=== PATIENT | male | born 1945 | race Caucasian/White ===

== ENCOUNTER → 2017-09-15 | Outpatient (REF) ==
[~2017-09-15] MED LIST: ADVIL200 MG PO; DAZIDOX10 MG PO; PERCOCET 325 MG1 TA2 PO
[2017-09-15 18:45] LABS: PSA-TOTAL 5.32 ng/mL (0-4)
[2017-09-15 19:24] LABS: THYROID STIMULATING HORMONE 0.936 uIU/mL (0.465-4.680)
== END ==
LOC: ZLAB.WCH 17:57
PROVIDERS: Family Medicine
DX: Z01.89 Encounter for other specified special examinations (principal)
CPT/HCPCS: G0103

== ENCOUNTER 2017-10-23 11:10 | Emergency (ER) | payer BC, MEDICARE ==
[~2017-10-23] VITALS: Ht 165.1 cm; Wt 88.6 kg
[2017-10-23] MEDS ORDERED: FLONASEALLERGY NAS (11:16)
[2017-10-23 11:42] LABS: ALANINE AMINOTRANSFERASE 30 U/L (21-72); ALBUMIN 3.7 gm/dL (3.5-5.0); ALKALINE PHOSPHATASE 85 U/L (50-136); ANION GAP 9 mmol/L (7-16); AST,SGOT 21 U/L (15-37); BILIRUBIN,TOTAL 0.5 mg/dL (0.0-1.0); BLOOD UREA NITROGEN 14 mg/dL (9-20); CARBON DIOXIDE 25 mmol/L (22-30); CHLORIDE 105 mmol/L (98-107); CREATININE, serum 0.77 mg/dL (0.66-1.25); GLUCOSE 98 mg/dL (74-106); PARTIAL THROMBOPLASTIN TIME 29.8 SECONDS (26.0-37.0); POTASSIUM 3.7 mmol/L (3.4-5.0); SODIUM 139 mmol/L (137-145); TOTAL PROTEIN 7.5 gm/dL (6.4-8.2)
[2017-10-23 11:43] LABS: BASO % 0.3 % (0.0-2.0); EOS # 0.1 (0.0-0.7); EOS % 1.6 % (0-4.0); GRAN # 3.7 (1.4-6.5); GRAN % 59.2 % (42.2-75.2); HEMATOCRIT 38.1 % (42.0-52.0); HEMOGLOBIN 13.4 g/dl (13.5-18.0); LYMPH # 1.8 (1.2-3.4); MEAN CELL VOLUME 91 fl (80.0-100.0); MEAN CORPUSCULAR HEMOGLOBIN 32 pg (27.0-31.0); MEAN CORPUSCULAR HGB CONC 35 g/dl (33.0-37.0); MEAN PLATELET VOLUME 9.4 fl (7.4-10.4); MONO # 0.6 (0.1-0.6); MONO % 9.7 % (1.7-9.3); PLATELET COUNT 221 K/mm3 (130-400); RED BLOOD COUNT 4.18 M/mm3 (4.20-5.60); REDCELL DISTRIBUTION WIDTH-CV 13.4 % (11.5-14.5)
[2017-10-23 11:55] LABS: TROPONIN-I < 0.012 ng/mL (0.000-0.034)
[2017-10-23 13:31] VITALS: BP 126/69; PULSE 67; TEMP 98
== END 2017-10-23 13:30 | disposition home or self-care (01) ==
LOC: COL.ER 11:10
PROVIDERS: Family Medicine
DX: R55 Syncope and collapse (principal); Z79.51 Long term (current) use of inhaled steroids

== ENCOUNTER → 2018-01-23 | Outpatient (CLI) | payer BC, MEDICARE ==
[~2018-01-23] MED LIST changes: +FLONASEALLERGY NAS
== END ==
LOC: COL.LAB 10:43
DX: Z96.651 Presence of right artificial knee joint (principal)

== ENCOUNTER → 2018-06-20 | Outpatient (REF) | LOC: ZLAB.WCH 16:27 | DX: Z01.89 Encounter for other specified special examinations (principal) ==

== ENCOUNTER 2021-08-26 03:26 | Emergency (ER) | payer MEDICARE, BC ==
[~2021-08-26] VITALS: Ht 165.1 cm; Wt 100.0 kg
[2021-08-26 04:34] VITALS: BP 144/71; PULSE 74; TEMP 97.6
== END 2021-08-26 04:34 | disposition home or self-care (01) ==
LOC: COL.ER 03:26
DX: R33.9 Retention of urine, unspecified (principal); F17.200 Nicotine dependence, unspecified, uncomplicated

== ENCOUNTER 2023-06-06 07:04 | Day surgery (SDC) | payer MEDICARE, BC ==
[~2023-06-06] VITALS: Ht 165.1 cm; Wt 102.4 kg
[~2023-06-06 07:04] MED LIST changes: +LR 1,000 ML IV SCH; +Ondansetron 4 MG/2 ML VIAL IV PRN
[2023-06-06] MEDS ORDERED: TOPROL XL 25MG25 MG PO (07:21)
[2023-06-06] MEDS ORDERED: LIPITOR 80MG80 MG PO (07:22)
[2023-06-06] MEDS ORDERED: FLOVENT 220MCG7.9 GM IH (07:22)
[2023-06-06] MEDS ORDERED: ASPIRIN E.C. 8181 MG PO (07:22)
[2023-06-06] MEDS ORDERED: PROAIR HFA0.09 MG/AC IH (07:23)
[2023-06-06] MEDS ORDERED: Lidocaine PF 2% (20 MG/ML) 5 ML VIAL ONE (08:26)
[2023-06-06 09:05] VITALS: BP 108/61; PULSE 82; TEMP 97
--- NOTE | 2023-06-06 09:05 | NUR ---
PATIENT AMBULATED TO CHAIR WITH STEADY GAIT, ASSIST OF 2. ALERT AND AWAKE. DENIES PAIN, NAUSEA AND SHORTNESS OF BREATH. BREATHING REGULAR AND UNLABORED ON ROOM AIR. SKIN WARM AND DRY. IV IN PLACE. NURSE HANDOFF COMPLETED IN ROOM. SEE CHART FOR VITAL SIGNS. PATIENT HAD WATER AND JELLO. BOTH FOOD AND DRINK TOLERATED WELL, NO DYSPHAGIA. CALL LIGHT IN REACH. SPOUSE, CHANCE, PRESENT IN ROOM.
[2023-06-06 09:15] VITALS: BP 106/66; PULSE 74
[2023-06-06 09:28] VITALS: BP 118/69; PULSE 69
[2023-06-06 09:30] VITALS: BP 108/71; PULSE 68
[2023-06-06 09:45] VITALS: BP 124/70; PULSE 67
--- NOTE | 2023-06-06 10:00 | NUR ---
0928: DISCHARGE TEACHING COMPLETED WITH PRINTED EDUCATION AND INSTRUCTIONS SENT HOME WITH PATIENT. PATIENT VERBALIZED UNDERSTANDING OF TEACHING. 0938: MET WITH PATIENT AND IN ROOM TO DISCUSS PROCEDURE. 0952: IV REMOVED. GAUZE AND COBAN PLACED OVER SITE. 1000: PATIENT DISCHARGED HOME WITH [facility].
[2023-06-06 10:49] VITALS: BP 131/78; PULSE 89; TEMP 98.2
--- NOTE | 2023-06-06 10:52 | NUR ---
0712 Pt ambulatory to bay 1 with a steady gait, pt slightly sob with ambulations. Pt is alert and oriented. Consents reviewed and signed by pt. IV established, LR infusing via gravity at KVO. Call light in reach. Warm blanket provided.
== END 2023-06-06 10:00 | disposition home or self-care (01) ==
LOC: SDCO 07:04
DX: Z12.11 Encounter for screening for malignant neoplasm of colon (principal); D12.0 Benign neoplasm of cecum; D12.2 Benign neoplasm of ascending colon; D12.6 Benign neoplasm of colon, unspecified; K64.0 First degree hemorrhoids; F17.210 Nicotine dependence, cigarettes, uncomplicated
CPT/HCPCS: J2704; J7120